=== PATIENT | female | born 1960 | race American Indian/Alaskan Native ===

== ENCOUNTER 2016-11-25 18:35 | Emergency (ER) | payer MEDICARE ==
[2016-11-25 19:12] VITALS: BP 134/69
--- NOTE | 2016-11-25 19:33 | Emergency Department Report ---
ED General Adult HPI - General Chief complaint: Extremity Problem,Nontraumatic Stated complaint: BLEEDING FROM DIALYSIS SITE Time Seen by Provider: 11/25/16 18:57 Source: patient, EMS (verbal report received from EMS.ems notes not available at time of chart dictation), RN notes reviewed Mode of arrival: Stretcher Limitations: No Limitations - History of Present Illness Initial comments: This is a 56-year-old female. She is previously unknown to me. She typically receives dialysis Wednesday, Wednesday, Wednesday. She received her normal dialysis session today. Her alterations supervisor is Dr. Gtz. Past medical history includes end-stage renal disease on dialysis, anemia, diabetes, high cholesterol, probable neuropathic pain. She is brought to the hospital by EMS for right upper extremity bleeding from AV fistula. She reports a complete dialysis session today. There is no pain. EMS applied direct pressure and a bandage. Upon my evaluation, the bleeding had resolved. No other complaints at this time. -: Gradual Location: right, lower extremity Severity scale (0 -10): 0 Consistency: now resolved Improves with: other (as per hpi) Worsens with: other (per hpi) Associated Symptoms: denies other symptoms - Related Data Home Medications Medication Instructions Recorded Confirmed Last Taken Aspirin [Aspirin TAB] 325 mg PO QDAY 11/25/16 11/25/16 Unknown Citalopram [celeXA] 20 mg PO QDAY 11/25/16 11/25/16 Unknown Docusate Sodium [Colace] 100 mg PO BID PRN 11/25/16 11/25/16 Unknown Ferrous Sulfate [Feosol] 325 mg PO QDAY 11/25/16 11/25/16 Unknown Gabapentin [Gralise] 600 mg PO BID 11/25/16 11/25/16 Unknown Insulin Aspart [NovoLOG Flexpen] 0 units SQ ACHS 11/25/16 11/25/16 Unknown Insulin Glargine [Lantus] 30 units SQ QHS 11/25/16 11/25/16 Unknown Metoclopramide HCl [Metoclopramide 5 mg PO TID 11/25/16 11/25/16 Unknown ODT TAB] Pravastatin (Nf) [Pravachol] 20 mg PO QHS 11/25/16 11/25/16 Unknown Sevelamer Carbonate [Renvela] 3,600 mg PO TIDWM 11/25/16 11/25/16 Unknown Zolpidem [Ambien] 5 mg PO QHS PRN 11/25/16 11/25/16 Unknown oxyCODONE /ACETAMINOPHEN [Percocet 1 tab PO Q8HR PRN 11/25/16 11/25/16 Unknown 5/325] Allergies Allergy/AdvReac Type Severity Reaction Status Date / Time No Known Allergies Allergy Unverified 11/25/16 18:55 ED Review of Systems ROS: Stated complaint: BLEEDING FROM DIALYSIS SITE Other details as noted in HPI Constitutional: no symptoms reported Eyes: as per HPI ENT: as per HPI. denies: epistaxis Respiratory: see HPI. denies: cough Cardiovascular: as per HPI. denies: chest pain Gastrointestinal: denies: abdominal pain Genitourinary: as per HPI. denies: dysuria Musculoskeletal: as per HPI Skin: as per HPI. denies: rash Neurological: as per HPI. denies: headache Psychiatric: as per HPI. denies: anxiety ED Past Medical Hx - Past Medical History Hx Hypertension: Yes Hx Diabetes: Yes Additional medical history: High cholesterol - Surgical History Hx Cholecystectomy: Yes Additional Surgical History: Av graft - Social History Smoking Status: Never Smoker Substance Use Type: None - Medications Home Medications: Home Medications Medication Instructions Recorded Confirmed Last Taken Type Aspirin [Aspirin TAB] 325 mg PO QDAY 11/25/16 11/25/16 Unknown History Citalopram [celeXA] 20 mg PO QDAY 11/25/16 11/25/16 Unknown History Docusate Sodium [Colace] 100 mg PO BID PRN 11/25/16 11/25/16 Unknown History Ferrous Sulfate [Feosol] 325 mg PO QDAY 11/25/16 11/25/16 Unknown History Gabapentin [Gralise] 600 mg PO BID 11/25/16 11/25/16 Unknown History Insulin Aspart [NovoLOG Flexpen] 0 units SQ ACHS 11/25/16 11/25/16 Unknown History Insulin Glargine [Lantus] 30 units SQ QHS 11/25/16 11/25/16 Unknown History Metoclopramide HCl [Metoclopramide 5 mg PO TID 11/25/16 11/25/16 Unknown History ODT TAB] Pravastatin (Nf) [Pravachol] 20 mg PO QHS 11/25/16 11/25/16 Unknown History Sevelamer Carbonate [Renvela] 3,600 mg PO TIDWM 11/25/16 11/25/16 Unknown History Zolpidem [Ambien] 5 mg PO QHS PRN 11/25/16 11/25/16 Unknown History oxyCODONE /ACETAMINOPHEN [Percocet 1 tab PO Q8HR PRN 11/25/16 11/25/16 Unknown History 5/325] ED Physical Exam - General Limitations: No Limitations General appearance: alert, in no apparent distress - Head Head exam: Present: atraumatic, normocephalic - Eye Eye exam: Present: normal appearance, EOMI. Absent: nystagmus - ENT ENT exam: Present: normal exam, normal orophraynx, mucous membranes moist, normal external ear exam - Neck Neck exam: Present: normal inspection, full ROM. Absent: tenderness, meningismus - Respiratory Respiratory exam: Present: normal lung sounds bilaterally. Absent: respiratory distress, wheezes, rales, rhonchi, stridor, decreased breath sounds - Cardiovascular Cardiovascular Exam: Present: regular rate, normal rhythm, normal heart sounds. Absent: bradycardia, tachycardia, irregular rhythm, systolic murmur, diastolic murmur, rubs, gallop - GI/Abdominal GI/Abdominal exam: Present: soft, normal bowel sounds. Absent: distended, tenderness, guarding, rebound, rigid, pulsatile mass - Extremities Exam Extremities exam: Present: normal inspection, full ROM, normal capillary refill , other (rue avf with appropriate thrill and bruit. Katia active bleeding at this time. The compartments are soft. 2+ pulses are noted in 4 extremities.). Absent: tenderness, pedal edema, joint swelling, calf tenderness - Back Exam Back exam: Present: normal inspection, full ROM. Absent: tenderness, CVA tenderness (R), CVA tenderness (L), muscle spasm, paraspinal tenderness, vertebral tenderness - Neurological Exam Neurological exam: Present: alert, oriented X3, normal gait, other (Extraocular movements intact. Tongue midline. No facial droop. Facial sensation intact to light touch in the V1, V2, V3 distribution bilaterally. 5 and 5 strength in 4 extremities.. Sensation is intact to light touch in 4 extremities.). Absent : motor sensory deficit - Psychiatric Psychiatric exam: Present: normal affect, normal mood - Skin Skin exam: Present: warm, dry, intact, normal color. Absent: rash ED Course Vital Signs 11/25/16 11/25/16 11/25/16 18:41 18:52 19:10 Temperature 98.5 F 98 F Pulse Rate 88 86 Respiratory 18 18 Rate Blood Pressure 139/83 Blood Pressure 134/69 [Left] O2 Sat by Pulse 99 99 98 Oximetry - Reevaluation(s) Reevaluation #1: 11/25/16 19:33 differential diagnosis: Dialysis associated bleeding, fistula bleeding, dysfunctional platelets secondary to chronic end-stage renal disease Assessment and plan: 56-year-old female with resolved bleeding from AV fistula. She is afebrile with reassuring vital signs. She reports a complete dialysis session today. Her physical exam is otherwise unremarkable, does not appear to be volume overloaded. Breath sounds are clear to auscultation bilaterally, and she is saturating well. I see no reason to obtain laboratory studies or additional radiology studies at this time. She is instructed on how to care for the fistula if it begins to bleed again. ED Medical Decision Making - Lab Data Vital Signs 11/25/16 11/25/16 11/25/16 18:41 18:52 19:10 Temperature 98.5 F 98 F Pulse Rate 88 86 Respiratory 18 18 Rate Blood Pressure 139/83 Blood Pressure 134/69 [Left] O2 Sat by Pulse 99 99 98 Oximetry Critical care attestation.: If time is entered above; I have spent that time in minutes in the direct care of this critically ill patient, excluding procedure time. ED Disposition Clinical Impression: ESRD (end stage renal disease) Disposition: DISCHARGED TO HOME OR SELFCARE Is pt being admited?: No Does the pt Need Aspirin: No Condition: Stable Additional Instructions: current outpatient medications. Follow-up with your primary care doctor or nephrology specialist within the next week. Follow up for dialysis this Wednesday as scheduled. If bleeding recurs, apply moderate pressure with the fingertip for 10-15 minutes, which should resolve bleeding. If this does not improve bleeding, contact 911 or return to the emergency room right away. Avoid medications such as Motrin, ibuprofen, Naprosyn, Aleve. Referrals: JOSEPHINE GTZ MD [Staff Physician] - 3-5 Days
== END 2016-11-25 19:52 | disposition home or self-care (01) ==
LOC: ED 18:35
DX: T82.838A Hemorrhage due to vascular prosthetic devices, implants and grafts, initial encounter (principal); I12.0 Hypertensive chronic kidney disease with stage 5 chronic kidney disease or end stage renal disease; N18.6 End stage renal disease; Z99.2 Dependence on renal dialysis; E11.9 Type 2 diabetes mellitus without complications; E78.00 Pure hypercholesterolemia, unspecified; Z90.49 Acquired absence of other specified parts of digestive tract; Z79.82 Long term (current) use of aspirin; Z79.4 Long term (current) use of insulin; Y92.89 Other specified places as the place of occurrence of the external cause
CPT/HCPCS: 99283